=== PATIENT | female | born 1945 | race Caucasian/White ===

== ENCOUNTER 2016-07-26 19:25 | Emergency (ER) | payer OTHER, MEDICAID ==
[~2016-07-26] VITALS: Wt 56.5 kg
[~2016-07-26 19:25] MED LIST: BEN50 PO; CALC-649 PO; HC1C30 TOP; PRED20TA PO; [UNRECOGNIZED DRUG - REMARK]
[2016-07-26] MEDS ORDERED: ACETAMINOPHEN 500 MG TAB PO STA (21:06)
[2016-07-26 21:14] VITALS: BP 155/67; PULSE 85; RESP 17
[2016-07-26] MEDS ORDERED: ALEN70TA30 PO (21:25)
[2016-07-26] MEDS ORDERED: LEVO75TA5 PO (21:25)
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
[2016-07-26] MEDS ORDERED: ACET500C5 PO (22:29)
--- NOTE | 2016-07-26 23:09 | RADRPT ---
PROCEDURE: XR Chest. CLINICAL INDICATION: Trauma TECHNIQUE: PA and Lateral views of the chest were obtained. COMPARISON: There are no similar studies submitted for comparison. FINDINGS: The heart is normal in size. The lungs are clear without evidence of infiltrate. There is no pleural effusion. No pneumothorax is identified. The osseous structures are intact. IMPRESSION: No evidence for acute cardiopulmonary disease. RPTAT: HIKT .Ray Sauceda MD, MD Date Time Electronically viewed and signed by .Ray Sauceda MD, on 07/26/2016 23:08 .T/
== END 2016-07-26 23:27 | disposition home or self-care (01) ==
LOC: E/R 19:25
DX: S20.219A Contusion of unspecified front wall of thorax, initial encounter (principal); E03.9 Hypothyroidism, unspecified; R07.9 Chest pain, unspecified; Y04.8XXA Assault by other bodily force, initial encounter
CPT/HCPCS: 71020; 93005